=== PATIENT | male | born 1950 ===

== ENCOUNTER 2021-03-09 15:12 | Inpatient (IN) | payer OTHER ==
[~2021-03-09] VITALS: Ht 165.1 cm; Wt 90.7 kg
[2021-03-09] MEDS ORDERED: DULO60CA45 PO (15:21)
[2021-03-09] MEDS ORDERED: TAMS-3 PO (15:21)
[2021-03-09] MEDS ORDERED: CLON1TAB PO (15:21)
[2021-03-09] MEDS ORDERED: FURO-151 PO (15:21)
[2021-03-09] MEDS ORDERED: VALS80TA2 PO (15:21)
[2021-03-09] MEDS ORDERED: BUDE180A IH (15:21)
[2021-03-09] MEDS ORDERED: ESCI5TAB PO (15:21)
[2021-03-09] MEDS ORDERED: DIPH50CA37 PO (15:21)
[2021-03-09] MEDS ORDERED: CHLO25CA22 PO (15:21)
--- NOTE | 2021-03-09 16:30 | NUR ---
PT TRANSFERED TO [facility] IN STABLE CONDITION.
[2021-03-09] MEDS ORDERED: MAG HYDROX/AL HYDROX/SIMETH 30 ML LIQUID UDC PO PRN (16:45)
[2021-03-09] MEDS ORDERED: MAGNESIUM HYDROXIDE 30 ML LIQUID UDC PO PRN (16:45)
[2021-03-09] MEDS ORDERED: TEMAZEPAM 7.5 MG CAPSULE PO PRN (16:45)
--- NOTE | 2021-03-09 17:43 | NUR ---
Admitted a 70 yrs old patient from [facility] with 5150 for DTS due to depression and suicidal ideation. patient is alert and oriented x4 verbalizers needs known ,patient with depressed mood feels hopeless and helpless denies any suicidal ideation now. patient able to ambulating with cane at home, he lives alone in a apartment with multiple medical history . Dr. Man aware of Admission.
[2021-03-09 18:07] VITALS: BP 119/80
[2021-03-09 20:15] VITALS: BP 141/84
[2021-03-09] MEDS ORDERED: diphenhydrAMINE 50 MG CAPSULE PO PRN (23:30)
[2021-03-10] MEDS: LORAZEPAM 0.5 MG TABLET PO PRN ×3 (02:51→16:50)
--- NOTE | 2021-03-10 03:27 | NUR ---
THE PATIENT RECEIVED IN BED AWAKE. PATIENT ALERT/ORIENTED X4 ABLE TO MAKE NEEDS KNOWN. THE PATIENT DENIES SI. THE PATIENT IS ISOLATIVE TO ROOM. PATIENT ENGAGES UPON APPROACH. THE PATIENT DENIES PAIN AT THIS TIME. THE PATIENT REQUESTED AN ATIVAN DUE TO ANXIETY, RENDERED ORDERED. SAFE ENVIRONMENT PROVIDED, FREQUENT ROUNDING, AND CLUTTER FREE ENVIRONMENT. BED IN LOWEST POSITION, AND BED LOCKED, AND BED ALARM ON WHILE IN BED. THE PATIENT AMBULATES WITH FWW.
[2021-03-10 07:16] LABS: BILIRUBIN,TOTAL 0.6 mg/dL (0.2-1.0); CREATININE 1.2 mg/dL (0.6-1.3); POTASSIUM 3.9 mmol/L (3.5-5.1); TOTAL PROTEIN, SERUM 7.8 g/dL (6.4-8.2)
[2021-03-10 07:30] VITALS: BP 123/66
--- NOTE | 2021-03-10 07:30 | NUR ---
Received report from HARRIET Enrique. All questions, comments, and concerns were addressed. Received patient resting quietly in his assigned bed. Bed in low and locked position.
[2021-03-10] MEDS: BUDESONIDE 0.5 MG/2 ML NEBU NEB SCH ×2 (07:56→20:00)
[2021-03-10] MEDS: FUROSEMIDE 40 MG TABLET PO SCH (08:45)
[2021-03-10] MEDS: VALSARTAN 80 MG TABLET PO SCH (08:45)
--- NOTE | 2021-03-10 08:45 | NUR ---
Firearms Report: Waterproof Material Folder completed and submitted a DOJ firearms report for 5150 danger to self certifications. A copy of report has been placed in patient chart.
[2021-03-10] MEDS ORDERED: TAMSULOSIN HCL 0.4 MG CAP.SR.24H PO SCH (09:00)
--- NOTE | 2021-03-10 09:28 | NUR ---
UR NOTE: Auth# [id number] DEV contacted Pearl Diver Cheyanne Trent ( ). DEV left a voicemail requesting a call back. DEV faxed face sheet and current available clinicals.
--- NOTE | 2021-03-10 09:39 | NUR ---
Brief Substance Abuse Intervention: Patient was provided with a brief substance abuse intervention for alcohol abuse and referred to [facility] [address], [place] [address] ([phone]); [facility] [address], [address], [place] [address] ([phone]); [facility] ([phone]); [facility] ([phone]); [facility] ([phone]); and National Suicide Prevention Lifeline ([phone]).
--- NOTE | 2021-03-10 11:08 | NUR ---
SW Initial Discharge Plan: Patient is currently homeless and will require a placement. This SW contacted patient's Karol Hill ([phone]) to gather collateral and discuss treatment/discharge plan. Liz stated that she lives at some sort of home with other residents and she was unsure of where pt resides at. Liz was unable to give proper information. This SW contacted patient's brother Uriel ([phone]) and he stated that he has not been in contact with pt for 3 years and resides in [place]. He stated that he is not involved in pt's care. SW will coordinate with pt and doctor to help find placement.
--- NOTE | 2021-03-10 11:08 | NUR ---
SW Family Contact: This SW contacted patient's Karol Hill ([phone]) to gather collateral and discuss treatment/discharge plan. Liz stated that she lives at some sort of home with other residents and she was unsure of where pt resides at. Liz was unable to give proper information. This SW contacted patient's brother Uriel ([phone]) and he stated that he has not been in contact with pt for 3 years and resides in [place]. Uriel stated that pt has been living at Shelters in [place] and is homeless.
--- NOTE | 2021-03-10 11:20 | NUR ---
SW Note: Pt had initially stated to this SW during assessment that he is unsure of his apartment address. SW researched in patient's charts and found that pt is homeless and was residing at different shelters. This SW spoke with pt stated that he is homeless and was residing at a group home. SW asked if pt recalls which group home he was last at and where he would want to go. Pt expressed that he was at [address], [place] [address]; and wants to go here upon discharge.
[2021-03-10] MEDS: VENLAFAXINE XR 75 MG TAB.ER.24H PO SCH (12:21)
--- NOTE | 2021-03-10 14:33 | NUR ---
UR NOTE: Auth# [id number] DEV received a call back from Claims Vice President Cheyanne Amarjit Miley ( ) confirming that the patient is authorized and will accept psychiatry history and physical tomorrow. DEV left a voicemail asking for number of day authorized. Waiting for a call back.
--- NOTE | 2021-03-10 14:38 | NUR ---
DEV Coordination of Care: SW contacted [address], [place] [address] ([phone]) and verified that the patient was residing at their detention over two months ago.
--- NOTE | 2021-03-10 14:46 | NUR ---
DEV Coordination of Care: DEV contacted [address] [address] ([phone]. [phone]) ambrose Verduzco to discuss patient's options for placement. Addendum: 03/10/21 at 1446 by CANDIDA LOAIZA DEV left a voicemail and waiting for a return call.
--- NOTE | 2021-03-10 14:46 | NUR ---
DEV Coordination of Care: SW contacted [facility] Address: [address], [place] [address] ([phone]) Heat And Frost Insulator Helper Lamin Sousa (ext [phone]) to discuss placement options for patient. Left a voicemail waiting for a return call.
--- NOTE | 2021-03-10 14:51 | NUR ---
DEV Coordination of Care: DEV contacted Leandro Engineering Technician Parking ([phone]) at [facility] to inquire if he can help with placement for patient as patient was transferred from [facility]. SW left a voicemail and waiting for a return call.
--- NOTE | 2021-03-10 15:44 | NUR ---
UR NOTE: Auth# [id number] received a call back from Development Advisor Cheyannedee Trent ( ) who stated that it takes a 1 or 2 for her to receive the faxes. Cheyanne stated they will not have any issues for authorization until she receive and reviews the clinicals and she will authorize for the days so far. Cheyanne stated that Linda ([phone]) will be covering for Cheyanne on Monday03/12/21 and Monday03/15/21.
[2021-03-10 16:19] VITALS: BP 147/90
--- NOTE | 2021-03-10 17:51 | NUR ---
patient is alert and oriented. he is guarded, withdrawn, depressed, and anxious. patient is cooperative with staff and able to communicate his needs. patient states he is feeling depressed but denies SI. states that due to multiple medical issues and not having a stable home he is hopeless. patient denies HI, denies AH/VH. Patient given Ativan 0.5 mg PO PRN for anxiety, reports it is effective. patient ambulates with FWW. able to perform self care and ADL's independently. patient encouraged to participate in unit groups and therapeutic milieu.
[2021-03-10] MEDS: TAMSULOSIN HCL 0.4 MG CAP.SR.24H PO SCH (20:06)
[2021-03-10] MEDS ORDERED: QUETIAPINE FUMARATE 25 MG TABLET PO SCH (21:00)
[2021-03-10 21:29] VITALS: BP 138/79
[2021-03-11] MEDS: LORAZEPAM 0.5 MG TABLET PO PRN ×2 (04:40→16:00)
--- NOTE | 2021-03-11 06:18 | NUR ---
Patient slept 6 hours and 45 mins. Patient is alert and oriented x 3. Med compliant. Cooperates with care. Mostly stays in his room, interacts with staff and certain peers. Patient will remain in a psych facility for further evaluation and treatment.
[2021-03-11 07:30] VITALS: BP 133/70
--- NOTE | 2021-03-11 08:12 | NUR ---
UR NOTE: Auth# [id number] faxed Health Care / Medical Job Titles Cheyanne [facility] ( ) clinicals.
--- NOTE | 2021-03-11 08:14 | NUR ---
UR NOTE: Auth# [id number] DEV faxed Forklift Wheel Loader Cheyanne Trent ( ) clinicals and left a voicemail regarding that this machine sign writer sent clinicals. This SW stated to fax confirmation of authorization.
[2021-03-11] MEDS: BUDESONIDE 0.5 MG/2 ML NEBU NEB SCH ×2 (09:10→19:15)
--- NOTE | 2021-03-11 09:38 | NUR ---
UR NOTE: Auth# [id number] SW faxed Software Support Specialist Cheyanne Trent ( ) contacted this SW that pt is authorized for today 03/11. She stated that she requires daily clinicals and sent this SW confirmation. This SW placed in patient's chart.
[2021-03-11] MEDS: VENLAFAXINE XR 75 MG TAB.ER.24H PO SCH (12:35)
[2021-03-11] MEDS: FUROSEMIDE 40 MG TABLET PO SCH (12:35)
[2021-03-11] MEDS: VALSARTAN 80 MG TABLET PO SCH (12:36)
--- NOTE | 2021-03-11 12:50 | NUR ---
[facility] Contact: This SW spoke with Luba coordinator ([phone]) ext: [phone] and she stated that they are open Monday-Monday for intake at 1PM and that pt is welcomed anytime around that time.
--- NOTE | 2021-03-11 14:30 | NUR ---
SW Coordination of Care: Patient will follow up with primary doctor Dr. Easley located at [address] [address]; ([phone]) on March 31 at 3:20PM and will provide and monitor patients psychotropic medications. This SW spoke with Kamala nuclear physics professor who arranged the appointment.
--- NOTE | 2021-03-11 14:35 | NUR ---
SW Note: This SW spoke with patient and stated that [facility] in [place] can take pt. He was agreeable with this custodial.
[2021-03-11 16:00] VITALS: BP 127/70
[2021-03-11] MEDS: ACETAMINOPHEN 325 MG TABLET PO PRN (16:00)
[2021-03-11 20:00] VITALS: BP 132/79
[2021-03-11] MEDS: QUETIAPINE FUMARATE 100 MG TABLET PO SCH (20:16)
[2021-03-11] MEDS: TAMSULOSIN HCL 0.4 MG CAP.SR.24H PO SCH (20:16)
[2021-03-11] MEDS ORDERED: QUETIAPINE FUMARATE 25 MG TABLET PO SCH (21:00)
[2021-03-12 07:30] VITALS: BP 105/72
[2021-03-12] MEDS: FUROSEMIDE 40 MG TABLET PO SCH (08:00)
[2021-03-12] MEDS: VENLAFAXINE XR 75 MG TAB.ER.24H PO SCH (08:00)
[2021-03-12] MEDS: VALSARTAN 80 MG TABLET PO SCH (08:08)
--- NOTE | 2021-03-12 09:24 | NUR ---
UR NOTE: Auth# [id number] faxed Wheel Of Fortune Dealer Cheyanne Ocasio Miley ( ) patient's updated daily clinicals and left a voicemail for a call back to confirm and requested faxed confirmation of authorization.
[2021-03-12] MEDS: BUDESONIDE 0.5 MG/2 ML NEBU NEB SCH ×2 (09:30→21:15)
--- NOTE | 2021-03-12 10:00 | NUR ---
DEV PC Hearing: Patient had 5250 probable cause hearing today and it was upheld for grave disability and danger to self.
--- NOTE | 2021-03-12 11:21 | NUR ---
UR NOTE: DVE received a call from Alessia MÉNDEZ from [facility] ([phone]) and discussed discharge planning. Alessia stated she will be following the patient and help him with future housing.
--- NOTE | 2021-03-12 11:35 | NUR ---
DEV Coordination of Care: DEV contacted Dilcia case packer and sealer for Transportation by [facility] [employer] ([phone]). Left a message to schedule transportation for Monday03/16/21. Waiting for a call back.
--- NOTE | 2021-03-12 13:10 | NUR ---
UR NOTE: DEV received a call from Linda heel caser from [facility] who stated she is covering for Cheyanne ( ). Linda stated that they will authorize through the weekend after they receive weekend clinicals on Monday Next week, and she cannot confirm authorization for the weekend at this time until clinicals have been reviewed.
--- NOTE | 2021-03-12 15:13 | NUR ---
DEV Coordination of Care: DEV contacted Dilcia rn case management for Transportation by [employer] ([phone]). Spoke with Dilcia and she confirmed she will be sending transportation/train ticket information to this social staff worker via email for Monday03/16/21.
[2021-03-12 16:00] VITALS: BP 106/76
[2021-03-12] MEDS: QUETIAPINE FUMARATE 100 MG TABLET PO SCH (20:00)
[2021-03-12] MEDS: TAMSULOSIN HCL 0.4 MG CAP.SR.24H PO SCH (20:00)
[2021-03-12] MEDS: ACETAMINOPHEN 325 MG TABLET PO PRN (20:01)
[2021-03-12] MEDS: LORAZEPAM 0.5 MG TABLET PO PRN (20:01)
[2021-03-12 20:21] VITALS: BP 117/81
[2021-03-13] MEDS: NAPROXEN 250 MG TABLET PO PRN ×3 (02:10→20:28)
--- NOTE | 2021-03-13 05:25 | NUR ---
Received this patient last night awake ,alert and oriented. Transportation Logistics Internship was able to engage in meaningful conversation. The patient denied having SI at the time and made a verbal contract with this video games storywriter for safety. Patient c/o pain in his knees and anxiety. Medications were provided. Patient agreed to take a shower this am. Sleep hours were 7.00. Continuing to monitor for safety, SI, pain and make frequent rounds.
[2021-03-13 07:35] VITALS: BP 144/80
[2021-03-13] MEDS: FUROSEMIDE 40 MG TABLET PO SCH (08:01)
[2021-03-13] MEDS: VENLAFAXINE XR 75 MG TAB.ER.24H PO SCH (08:01)
[2021-03-13] MEDS: VALSARTAN 80 MG TABLET PO SCH (08:01)
[2021-03-13] MEDS: BUDESONIDE 0.5 MG/2 ML NEBU NEB SCH ×2 (08:58→21:25)
[2021-03-13 16:24] VITALS: BP 123/81
[2021-03-13 20:22] VITALS: BP 136/76
[2021-03-13] MEDS: QUETIAPINE FUMARATE 100 MG TABLET PO SCH (20:25)
[2021-03-13] MEDS: TAMSULOSIN HCL 0.4 MG CAP.SR.24H PO SCH (20:25)
[2021-03-14] MEDS: VALSARTAN 80 MG TABLET PO SCH (08:26)
[2021-03-14] MEDS: VENLAFAXINE XR 75 MG TAB.ER.24H PO SCH (08:26)
[2021-03-14] MEDS: FUROSEMIDE 40 MG TABLET PO SCH (08:26)
[2021-03-14] MEDS: BUDESONIDE 0.5 MG/2 ML NEBU NEB SCH ×2 (08:30→22:00)
[2021-03-14 09:30] VITALS: BP 125/71
[2021-03-14 16:18] VITALS: BP 121/63
[2021-03-14 20:22] VITALS: BP 139/79
[2021-03-14] MEDS: TAMSULOSIN HCL 0.4 MG CAP.SR.24H PO SCH (20:41)
[2021-03-14] MEDS: QUETIAPINE FUMARATE 100 MG TABLET PO SCH (20:41)
[2021-03-14] MEDS: NAPROXEN 250 MG TABLET PO PRN (20:42)
[2021-03-14] MEDS: LORAZEPAM 0.5 MG TABLET PO PRN (21:43)
[2021-03-15 07:00] VITALS: BP 136/83
[2021-03-15] MEDS: BUDESONIDE 0.5 MG/2 ML NEBU NEB SCH ×2 (07:30→20:47)
--- NOTE | 2021-03-15 08:12 | NUR ---
UR NOTE: Auth# [id number] SW faxed Regional Sales Consultant Cheyanne Ocasio Miley ( ) and faxed patient's updated clinicals.
[2021-03-15] MEDS: VENLAFAXINE XR 75 MG TAB.ER.24H PO SCH (08:36)
[2021-03-15] MEDS: FUROSEMIDE 40 MG TABLET PO SCH (08:36)
[2021-03-15] MEDS: VALSARTAN 80 MG TABLET PO SCH (08:36)
--- NOTE | 2021-03-15 10:40 | NUR ---
SW Family Contact: This SW contacted patient's Karol Hill ([phone]) and left a detailed voicemail of pt's discharge for 03/16 to [facility] [place].
--- NOTE | 2021-03-15 14:32 | NUR ---
UR NOTE: Auth# [id number] SW faxed Deputy Coroner Investigator Cheyanne Trent ( ) and faxed patient's updated clinicals and left her a voicemail. This SW requested confirmation auth faxed to this SW.
--- NOTE | 2021-03-15 14:59 | NUR ---
UR NOTE: SW received a call from Linda foster care case manager from [facility] who stated she is covering for Cheyanne ( ) stated that she will send confirmation to this technical publications writer and stated pt is covered.
--- NOTE | 2021-03-15 15:34 | NUR ---
UR NOTE: SW received a call from Linda case briefer from [facility] who stated she is covering for Cheyanne ( ) sent confirmation until 03/12 and this sw placed in chart.
[2021-03-15 15:35] VITALS: BP 124/68
[2021-03-15] MEDS: LORAZEPAM 0.5 MG TABLET PO PRN (18:21)
[2021-03-15 20:06] VITALS: BP 103/73
[2021-03-15] MEDS: QUETIAPINE FUMARATE 100 MG TABLET PO SCH (20:17)
[2021-03-15] MEDS: TAMSULOSIN HCL 0.4 MG CAP.SR.24H PO SCH (20:17)
[2021-03-16] MEDS: LORAZEPAM 0.5 MG TABLET PO PRN (03:50)
[2021-03-16] MEDS: BUDESONIDE 0.5 MG/2 ML NEBU NEB SCH (07:06)
[2021-03-16 07:30] VITALS: BP 111/70
[2021-03-16] MEDS: VENLAFAXINE XR 75 MG TAB.ER.24H PO SCH (08:25)
[2021-03-16 08:26] VITALS: BP 111/40
[2021-03-16] MEDS: VALSARTAN 80 MG TABLET PO SCH (08:26)
[2021-03-16] MEDS: FUROSEMIDE 40 MG TABLET PO SCH (08:26)
--- NOTE | 2021-03-16 08:26 | NUR ---
DEV Discharge Note: Patient wants to be discharged to [facility]. Patient will be provided with taxi transportation [employer] located at [address] [place] [phone] at 12PM. Patient is provided with bus ticket for 3:38PM. Patient will then arrive to [address] [address]; ([phone]). Transportation for [employer] was provided by Dilcia from [facility] ([phone]). DEV spoke with Luba coordinator ([phone]) ext: [phone] who stated pt is welcomed today for intake evaluation. Patients brianjazmin Hill ([phone]) is aware of patients discharge. Patient appears to be alert and oriented x3. Patient denies visual/auditory hallucinations. Patient denies suicidal ideation. Patient will follow up with primary doctor Dr. Easley located at [address] [address]; ([phone]) on March 31 at 3:20PM and will provide and monitor patients psychotropic medications. Patient was provided with a brief substance abuse intervention for alcohol abuse and referred to [facility] [address] [place] [address] ([phone]); [facility] [address], [address], [place] [address] ([phone]); [facility] ([phone]); [facility] ([phone]); [facility] ([phone]); and National Suicide Prevention Lifeline ([phone]). Patient presented with euthymic mood and congruent affect.
--- NOTE | 2021-03-16 09:13 | NUR ---
UR NOTE: DEV spoke with Linda employment evaluator/case manager from [facility] who had been covering for Cheyanne ( ) and stated that Cheyanne is back and will be reviewing the case. Linda confirmed she received discharge clinicals Maribel MÉNDEZ faxed yesterday and will have Cheyanne reach out to this SW for auth confirmation from 03/12 to today.
--- NOTE | 2021-03-16 11:52 | NUR ---
UR NOTE: SW received a fax confirmation for authorization for patient's hospitalization from lining caser from [facility] ( ). Copy of the auth has been placed in the patient's chart.
--- NOTE | 2021-03-16 13:30 | NUR ---
Patient wants to be discharged to [facility]. Patient provided with taxi transportation [employer] at 12PM. Patient is provided with bus ticket for 3:38PM. Patient will then arrive to [facility]. patient is alert and oriented x4 ,ambulating and self care. all personal belonging returned to patient.
== END 2021-03-16 13:30 | disposition home or self-care (01) | DRG 885 ==
LOC: ER 15:12 → GPS 16:12
PROVIDERS: ADMIT Psychiatry & Neurology Psychiatry; ATTEND Hospitalist
DX: F33.3 Major depressive disorder, recurrent, severe with psychotic symptoms (principal); R45.851 Suicidal ideations; E44.1 Mild protein-calorie malnutrition; E88.09 Other disorders of plasma-protein metabolism, not elsewhere classified; E78.5 Hyperlipidemia, unspecified; I10 Essential (primary) hypertension; F10.10 Alcohol abuse, uncomplicated; N40.0 Benign prostatic hyperplasia without lower urinary tract symptoms; J44.9 Chronic obstructive pulmonary disease, unspecified; Z59.0 Homelessness; Z68.33 Body mass index [BMI] 33.0-33.9, adult; F13.90 Sedative, hypnotic, or anxiolytic use, unspecified, uncomplicated
CPT/HCPCS: 36415; 94640; A4663; Q0163